=== PATIENT | male | born 1950 | race Caucasian/White ===

== ENCOUNTER 2022-01-03 06:56 | Outpatient (CLI) | payer OTHER, SELFPAY ==
--- NOTE | ~2022-01-03 | MR_ITS ---
EXAMINATION: MR pelvis wo/w con DATE: 01/03/2022 08:19 INDICATION: Malignant neoplasm of prostate. TECHNIQUE: Magnetic resonance imaging (MRI) of the pelvis was performed without and with 20 mL MultiH ance intravenous contrast. COMPARISON: None. FINDINGS: The prostate is absent. There are no pathologically enlarged lymph nodes. There is no free intraperit oliver fluid. There is a 10.6 x 3.5 cm cyst anteroinferior and left lateral to the bladder. There are small bilateral hydroceles. IMPRESSION: 1. Absent prostate. No evidence of metastatic disease. 2. Cyst anteroinferior and left lateral to the bladder, which may be a lymphangioma or seroma. Reviewed, dictated and finalized at location A. IMPRESSION: 1. Absent prostate. No evidence of metastatic disease. 2. Cyst anteroinferior and left lateral to the bladder, which may be a lymphang ioma or seroma.
[2022-01-03 07:35] LABS: Estimated Glomerular Filt Rate > 60
== END 2022-01-03 06:57 | disposition home or self-care (01) ==
PROVIDERS: Visit Provider Radiology Radiation Oncology
DX: C61 Malignant neoplasm of prostate (principal)
CPT/HCPCS: 72197; A9577